=== PATIENT | male | born 1960 | race Caucasian/White ===

== ENCOUNTER 2017-04-04 10:45 | Inpatient (IN) | payer MEDICARE ==
[2017-03-27 12:30] LABS: HEMATOCRIT 46.1 % (40.0-51.0); HEMOGLOBIN 15.8 g/dL (13.6-17.8)
[2017-03-27 12:44] LABS: BUN (BLOOD UREA NITROGEN) 16 MG/DL (6-23); CHLORIDE, SERUM 107 MMOL/L (96-112); CO2 (CARBON DIOXIDE) 25 MMOL/L (24-34); CREATININE 1.15 MG/DL (0.70-1.30); GFR AFRICAN AMERICAN 81 ML/MIN (>=60); GFR NON AFRICAN AMERICAN 70 ML/MIN (>=60); GLUCOSE, SERUM 101 MG/DL (60-99); POTASSIUM, SERUM 3.9 MMOL/L (3.5-5.3); SODIUM, SERUM 140 MMOL/L (135-148)
[~2017-04-04] VITALS: Ht 170.2 cm; Wt 69.9 kg
--- NOTE | ~2017-04-04 | OP ---
Record Of Operation [facility] [address] [place]. [address] NAME: AUDREY DRAPER : 58 STATUS : ADM IN PAT#: [id number] AGE: 56 ADM/REG DATE : 04/04/17 MR#: [id number] REPORT SERV DATE: 04/04/17 DICTATED BY: NITIN ARNDT DATE: 04/04/17 REPORT STATUS : Draft TRANSCRIBED BY: MODL DATE: 04/04/17 DATE OF PROCEDURE: 04/04/2017 PREOPERATIVE DIAGNOSIS: Prostate cancer. POSTOPERATIVE DIAGNOSIS: Prostate cancer. PROCEDURE: Robotic assisted laparoscopic radical prostatectomy with left laparoscopic pelvic lymph node dissection. FIREPOT OPERATOR AND TENDER: ÁNGEL Carranza. ANESTHESIA: General. PREOPERATIVE INDICATIONS: A 56-year-old male presented with a negative family history of prostate cancer and a benign biopsy history. His PSA was 8.9 and further evaluated with an MRI of the prostate which identified an index lesion at the left anterior mid gland. There was no evidence of T3 disease. MRI targeted biopsy identified a Shunk 7, 4+3 prostate cancer. P10 suppression was intact, and there was no overexpression of ERG fusion. After reviewing his options, risks, alternatives, and benefits, he elected surgical management with a robotic approach. DESCRIPTION OF OPERATIVE PROCEDURE: Following adequate general anesthesia, the patient was placed in a modified lithotomy position, well padded and secured to the table, placed in a steep Trendelenburg position. He was noted to be safely secured to the table and was returned to a level position where he was prepped and draped in the usual sterile fashion. A 16-Swedish catheter was placed into the bladder from the operative field. Pneumoperitoneum was achieved with a Veress needle. A 12 mm port was placed in the left upper quadrant with the Optiview system. The camera was placed into the abdomen. The abdomen inspected. There were no abnormal findings. Under direct vision, three robotic ports were placed as well as a left lower quadrant 8 mm port and a supraumbilical 12 mm port. The patient was returned to a Trendelenburg position and docked to the robot. The bladder was taken down by incising laterally along the median umbilical ligaments to the level of vas deferens bilaterally with the electrocautery yamilet. The space of Retzius was developed bluntly and sharply. There were some dense adhesions due to bilateral mesh placement in the pelvis for hernia repair. The fat was dissected off the anterior surface of the prostate sharply and sent for separate pathology review in view of the anterior location of his tumor. Endopelvic fascia was incised bilaterally and levator muscle swept off the lateral surface of the prostate bilaterally. The dorsal vein complex was dissected out and controlled and divided with an endovascular CARROLL stapler. The bladder neck was incised at its junction with the base of the prostate with electrocautery spatula. The bladder was entered. The catheter was grasped with a ProGrasp grasper and used for anterior retraction on the prostate. He was noted to have a moderate- sized intravesical lobe. The posterior bladder neck was developed and incised with the Record Of Operation [address] [place]. [address] NAME: AUDREY DRAPER : 58 STATUS : ADM IN [facility]#: [id number] AGE: 56 ADM/REG DATE : 04/04/17 MR#: [id number] REPORT SERV DATE: 04/04/17 DICTATED BY: NITIN ARNDT DATE: 04/04/17 REPORT STATUS : Draft TRANSCRIBED BY: CHON DATE: 04/04/17 electrocautery spatula, and a plane was bluntly developed between the posterior bladder neck and prostate. Due to the distortion of the bladder neck from the intravesical lobe, his ureteral orifice was very near the incision line of the bladder neck. The anterior Denonvilliers fascia was incised to expose the vas deferens and seminal vesicles. The vas deferens were dissected out bluntly and divided sharply. The ends of the vas deferens were grasped with the ProGrasp grasper for additional anterior retraction of the prostate. The seminal vesicles were dissected out bluntly and their blood supply controlled with interlocking clips. They were incised at their base. The bladder neck was inspected and did require some reconstruction with two colraq-so-owvda 3-0 Vicryl sutures at the 3 o'clock and 9 o'clock positions taking care to avoid the ureteral orifices. The posterior Denonvilliers fascia was then incised, and a plane was bluntly developed between the rectum and the prostate. Levator fascia was incised bilaterally, and the neurovascular bundle was bluntly and easily dissected away from the posterolateral surface of the prostate bilaterally. Pedicles were controlled with interlocking clips and divided sharply with a round-tip scissors. The urethra was dissected out with a round-tip scissors. The dorsal vein complex was secured to the pubic periosteum with a [id number] 2-0 Monocryl suture. The urethra was then divided sharply at the prostatourethral junction. The catheter was withdrawn. The posterior urethra was divided as well as remaining apical attachments, and the prostate was freed. A left laparoscopic pelvic lymph node dissection was performed with the margins of dissection being the anterior surface of the external iliac vein, the bifurcation of the external and internal iliac artery, and the pelvic sidewall both anterior and posterior to the obturator nerve. Margins were controlled with interlocking clips, and the specimen divided sharply with round-tip scissors. The vicky specimen and prostate were placed in an EndoCatch sac and placed out of the view of the operative field. The pelvis was then irrigated with sterile water and antibiotic solution. It was carefully inspected. There was excellent hemostasis and no apparent rectal injury. Posterior Denonvilliers fascia was reapproximated to the posterior urethral plate with a running 3-0 V Loc suture. The urethrovesical anastomosis was performed after placing a left ureteral 5- Swedish pediatric feeding tube to ensure patency of the left ureteral orifice. The anastomosis was performed with a running 3-0 V-Loc suture over a 20-Swedish catheter. The pediatric feeding tube was removed just prior to completing the suture line. The balloon was filled with 10 mL of sterile water. The bladder was irrigated with sterile water, and there was a watertight anastomosis. A #19 Geo drain was passed through one of the robotic ports and placed into the pelvis. The port was removed, its exit site demonstrating good hemostasis. The drain was fixed to the skin with 2-0 Prolene suture. The patient was de- docked from the robot and returned to a level position. The remaining trocars were removed under direct vision, their exit sites demonstrating good hemostasis. The periumbilical port was used to guide a transverse fascial incision to allow intact retrieval of the specimen which was closed with six interrupted #1 Ethibond sutures. The periumbilical wound and port sites were irrigated with antibiotic solution and skin edges reapproximated with skin clips. The drain was left to grenade suction. The catheter was left to gravity drainage. Bandages were applied. The procedure was concluded. He was awakened from his anesthesia, had tolerated it well and transferred to the recovery room in satisfactory condition. Record Of Operation [facility] [address] [place]. [address] NAME: AUDREY DRAPER : 58 STATUS : ADM IN [facility]#: [id number] AGE: 56 ADM/REG DATE : 04/04/17 MR#: [id number] REPORT SERV DATE: 04/04/17 DICTATED BY: NITIN ARNDT DATE: 04/04/17 REPORT STATUS : Draft TRANSCRIBED BY: CHON DATE: 04/04/17 DIAMOND/CHON Nitin Arndt M.D. / [id number] CC: Nitin Arndt M.D.
[~2017-04-04 10:45] MED LIST: AMB5 PO; ANOROELLIPTA INH; AT10 PO; CIP5 PO; LEXAPRO10 PO; NORCO1 TA1 PO; PROAIR HFA INH; REQUIP2 PO; X5 PO; ZOCOR80 MG PO; ZYP2 PO
[2017-04-04 17:15] LABS: HEMATOCRIT 40.6 % (40.0-51.0); HEMOGLOBIN 13.6 g/dL (13.6-17.8)
[2017-04-04 17:28] LABS: CREATININE 1.27 MG/DL (0.70-1.30); POTASSIUM, SERUM 3.9 MMOL/L (3.5-5.3)
== END 2017-04-05 14:52 | disposition home or self-care (01) | DRG 708 ==
LOC: ENRESERVDT → ENRESERV → ENRESERVTM → SDC/OF 10:45 → 4SO 10:45 → PACU 16:56 → 4SO 18:15
PROVIDERS: Urology
PROC: 07BC4ZX Excision of Pelvis Lymphatic, Percutaneous Endoscopic Approach, Diagnostic (ICD-10-PCS; 2017-04-04)
PROC: 8E0W4CZ Robotic Assisted Procedure of Trunk Region, Percutaneous Endoscopic Approach (ICD-10-PCS; 2017-04-04)
PROC: 0VT04ZZ Resection of Prostate, Percutaneous Endoscopic Approach (ICD-10-PCS; principal; 2017-04-04 12:30)
DX: C61 Malignant neoplasm of prostate (principal); J44.9 Chronic obstructive pulmonary disease, unspecified; I25.2 Old myocardial infarction; F41.9 Anxiety disorder, unspecified
CPT/HCPCS: 80048; 82565; 84132; 85014; 85018; 88305; 88307; 88309; 88342; 88344; 93005; A9270-GY; J0461; J0690; J1885; J2250; J2405; J2710; J2795; J3010